=== PATIENT | male | born 1965 ===

== ENCOUNTER 2018-01-29 15:30 | Emergency (ER) | payer OTHER ==
[2018-01-29 15:39] VITALS: BP 121/79
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
[2018-01-29] MEDS ORDERED: MOTRIN PO ONE (19:20)
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
== END 2018-01-29 20:04 | disposition home or self-care (01) ==
LOC: ED 15:30
DX: R07.89 Other chest pain (principal); V89.2XXA Person injured in unspecified motor-vehicle accident, traffic, initial encounter; Y93.89 Activity, other specified; Y92.89 Other specified places as the place of occurrence of the external cause; Y99.8 Other external cause status
CPT/HCPCS: 71045; 93005; 93010; 99283